=== PATIENT | male | born 2000 | race Caucasian/White ===

== ENCOUNTER 2020-05-06 21:59 | Emergency (ER) | payer SELFPAY ==
[~2020-05-06] VITALS: Ht 170 cm; Wt 98.8 kg
[2020-05-06 22:14] VITALS: BP 130/77
[2020-05-06] MEDS ORDERED: RX-MUPIROCIN (BACTROBAN) 2% OINT 22 GM TUBE TOP STA (22:31)
[2020-05-06] MEDS ORDERED: RX-TRIMETH/SULFA. 160-800 MG (BACTRIM DS) TAB PPK#2 PO STA (22:31)
[2020-05-06] MEDS ORDERED: MUPI22OI2 TP (22:35)
[2020-05-06] MEDS ORDERED: SULF1TAB35 PO (22:35)
--- NOTE | 2020-05-06 22:35 | ED Integumentary General ---
General Chief Complaint: Skin/Wound Problems Stated Complaint: L LEG PAIN/SWELLING Nursing Triage Note: reports cutting left leg with box knife at work approx. 1 week ago. approx. 3.5cm healing laceration noted. clean/dry dressing removed. pt reports left calf swelling today. History of Present Illness Date Seen by Provider: May 06, 2020 Time Seen by Provider: 22:32 Initial Comments PT ARRIVES VIA [facility] STATES A WEEK AGO, WHILE HE WAS AT WORK IN [place], HE CUT HIS LEFT LOWER LEG/MEDIAL CALF WITH A POCKET KNIFE DID NOT SEEK CARE UNTIL [facility] STATES HE PUT "BUTTERFLY SUTURES" OVER THE AREA,BUT REMOVED [facility] STATES AREA HAS BEEN DRAINING A LITTLE BIT C/O SORENESS TO THE AREA AND THINKS HIS CALF MIGHT BE A LITTLE SWOLLEN TODAY GOT BACK HERE TODAY FOR WORK--WORKS FOR [employer]. IS STAYING IN A HOTEL. PT IS FROM [place]. LAST TETANUS WAS EARLIER THIS YEAR "IN BASIC TRAINING" NO HEALTH PROBLEMS Allergies and Home Medications Allergies Coded Allergies: No Known Drug Allergies (Unverified , 05/06/20) Home Medications Mupirocin 22 Gm Oint...g., 22 GM TP BID Prescribed by: JADEN SEGAL on 05/06/202234 Sulfamethoxazole/Trimethoprim 1 Each Tablet, 1 EACH PO BID Prescribed by: JADEN SEGAL on 05/06/202234 Patient Home Medication List Home Medication List Reviewed: Yes Review of Systems Review of Systems Constitutional: no symptoms reported; No fever Musculoskeletal: see HPI Skin: see HPI Psychiatric/Neurological: No Symptoms Reported Past Zbffzxt-Nohira-Ptppip Hx Past Med/Social Hx: Reviewed and Corrections made Patient Social History Alcohol Use: Denies Use Recreational Drug Use: No Smoking Status: Never a Smoker Type Used: Smokeless Tobacco 2nd Hand Smoke Exposure: No Recent Foreign Travel: No Contact w/Someone Who Travel: No Recent Infectious Disease Expo: No Recent Hopitalizations: No Immunizations Up To Date Tetanus Booster (TDap): Less than 5yrs Seasonal Allergies Seasonal Allergies: No Past Medical History Surgeries: No Respiratory: No Cardiac: No Neurological: No Genitourinary: No Gastrointestinal: No Musculoskeletal: No Endocrine: No HEENT: No Cancer: No Psychosocial: No Integumentary: No Blood Disorders: No Physical Exam Vital Signs Vital Signs - First Documented 05/06/20 22:14 Temp 36.6 Pulse 58 Resp 16 B/P (MAP) 130/77 (94) Pulse Ox 98 O2 Delivery Room Air Capillary Refill : Less Than 3 Seconds General Appearance: WD/WN, no apparent distress Extremities: other (MEDIAL ASPECT OF LEFT LOWER LEG WITH 1 X 3.5 CM LACERATION. SCANT AMOUNT OF SERO-SANGUINOUS DRINAGE. NO ERYTHEMA. NO FLUCTUANCE. NO STREAKS. POSSIBLY VERY SLIGHT SURROUNDING ERYTHEMA. MOTOR/SENSORY/VASCULAR INTACT. DOES HAVE SOME SKIN BREAKDOWN ADJACENT TO THE LACERATION, ON BOTH SIDES DUE TO PREVIOUS APPLICATION OF "BUTTERFLY SUTURES" / ADHESIVE STRIPS) Neurologic/Psychiatric: no motor/sensory deficits, alert Skin: normal color, warm/dry, other ( ABOVE) Progress/Results/Core Measures Results/Orders My Orders Orders - JADEN SEGAL DO Rx-Trimeth/Sulfameth Ds Tab (Rx-Bactrim/ (05/06/20 22:31) Rx-Mupirocin 2% Oint (Rx-Bactroban) (05/06/20 22:31) Wound Culture (05/06/20 22:31) Vital Signs/I&O 05/06/20 22:14 Temp 36.6 Pulse 58 Resp 16 B/P (MAP) 130/77 (94) Pulse Ox 98 O2 Delivery Room Air Blood Pressure Mean: 94 Progress Progress Note : Progress Note WOUND CULTURE OBTAINED. Departure Impression Primary Impression: Laceration of left lower leg with infection Disposition: 01 HOME, SELF-CARE Condition: Stable Departure-Patient Inst. Patient Instructions: Wound Care (DC), Laceration Infection (DC) Add. Discharge Instructions: CLEAN WOUND TWICE A DAY WITH ANTIBACTERIAL SOAP AND WATER, APPLY ANTIBIOTIC OINTMENT AND FRESH DRESSING TWICE A DAY TYLENOL AND MOTRIN NEEDED FOR PAIN FOLLOW UP WITH DR OF CHOICE IN 2-3 DAYS IF NO BETTER, RETURN TO ER IF WORSE All discharge instructions reviewed with patient and/or family. Voiced understanding. Scripts Mupirocin (Mupirocin) 22 Gm Oint...g. 22 GM TP BID, #1 TUBE Prov: JADEN SEGAL DO 05/06/20 Sulfamethoxazole/Trimethoprim (Bactrim Ds Tablet) 1 Each Tablet 1 EACH PO BID, #20 TAB Prov: JADEN SEGAL DO 05/06/20 JADEN SEGAL DO May 06, 2020 22:35
== END 2020-05-06 22:46 | disposition home or self-care (01) ==
LOC: ER 22:06
DX: S81.812A Laceration without foreign body, left lower leg, initial encounter (principal); W26.0XXA Contact with knife, initial encounter
CPT/HCPCS: 87070; 87205; 99283